=== PATIENT | female | born 1940 | race Caucasian/White ===

== ENCOUNTER 2019-03-10 05:40 | Day surgery (SDC) | payer MEDICARE ==
[2019-03-06 14:21] LABS: BASOPHILS # (AUTO) 0.1 X10'3 (0-0.2); BASOPHILS % (AUTO) 0.7 % (0-1); EOSINOPHILS # (AUTO) 0.4 X10'3 (0-0.9); EOSINOPHILS % (AUTO) 5.1 % (0-6); LYMPHOCYTES # (AUTO) 2.1 X10'3 (1.1-4.8); LYMPHOCYTES % (AUTO) 26.3 % (21-51); MEAN CORPUSCULAR HEMOGLOBIN 30.6 PG (27.0-31.0); MEAN CORPUSCULAR HGB CONC 33.7 g/dL (33.0-36.5); MONOCYTES # (AUTO) 0.4 X10'3 (0-0.9); MONOCYTES % (AUTO) 5.2 % (2-12); NEUTROPHILS % (AUTO) 62.7 % (42-75); PRE OP HEMOGLOBIN 11.8 g/dL (12.0-16.0); PRE OP PLATELET COUNT 230 X10'3 (140-440); RED BLOOD COUNT 3.85 X10'6 (4.20-5.60); RED CELL DISTRIBUTION WIDTH 13.6 % (11.5-14.5)
[2019-03-06 14:48] LABS: ALBUMIN 3.4 G/DL (3.4-5.0); ALBUMIN/GLOBULIN RATIO 0.9 (1.1-1.5); ALKALINE PHOSPHATASE 112 IU/L (46-116); BLOOD UREA NITROGEN 40 MG/DL (7-18); BUN/CREATININE RATIO 19.3 (6.6-38.0); CALCIUM 9.6 MG/DL (8.5-10.1); CHLORIDE 106 MMOL/L (99-107); CREATININE 2.07 MG/DL (0.40-0.90); PRE OP ALT 18 U/L (30-65); PRE OP ANION GAP 11 (8-16); PRE OP AST 13 U/L (10-37); PRE OP BILIRUB, TOTAL 0.5 MG/DL (0.0-1.0); PRE OP GLUCOSE 97 MG/DL (70-104); PRE OP POTASSIUM 4.3 MMOL/L (3.4-5.1); PRE OP SODIUM 142 MMOL/L (135-145); TOTAL CARBON DIOXIDE 25.3 MMOL/L (24-32); TOTAL PROTEIN 7.2 G/DL (6.4-8.2); eGFR 23 ML/MIN
[~2019-03-10] VITALS: Ht 160 cm; Wt 98.1 kg
[~2019-03-10 05:40] MED LIST: ALD25T PO; ALPR-304 PO; CARV-50 PO; CITA20TA28 PO; DOCUMENT DATE & TIME OF BETA-BLOCKER PO ONE; FURO-150 PO; GABA-338 PO; HYDR-3964 PO; NAPR-56 PO; OMEP-50 PO; cefazolin/dext.iso 2gm/50ml 50 ML IV ONE; famotidine 20mg tablet PO ONE; ringers solution, lacted 1,000 ML IV SCH
[2019-03-10] MEDS ORDERED: BUPIVAcaine/PF 2.5mg/ml (0.25%) 10ml vial ONE (06:33)
[2019-03-10] MEDS ORDERED: LIDOcaine 0.5% (5mg/ml) 50ml vial ONE (07:17)
[2019-03-10] MEDS ORDERED: ringers solution, lacted 1,000 ML IV SCH (07:44)
[2019-03-10] MEDS ORDERED: proCHLORperazine 10 MG/2 ml inj IV PRN (07:45)
[2019-03-10] MEDS ORDERED: morphine 4 MG/ML inj SYRINge IV PRN ×2 (07:45)
[2019-03-10] MEDS ORDERED: meperidine/PF 25mg/ml syringe IV PRN ×3 (07:45)
[2019-03-10] MEDS ORDERED: ondansetron/PF 4mg/2ml inj IV PRN (07:45)
[2019-03-10 07:50] VITALS: BP 134/66
--- NOTE | 2019-03-10 07:52 | NUR ---
RASH BOTH ANTECUBITALS FROM HIBICLENS SHOWER. PT DIDN'T TAKE 2ND SHOWER, DR GO AWARE Addendum: 03/10/19 at 0800 by Susi Wilburn RN Amended: Links added.
[2019-03-10 07:57] VITALS: BP 134/66
[2019-03-10] MEDS ORDERED: fentaNYL/PF 50MCG/1 ML 2ML syringe ONE (08:01)
[2019-03-10] MEDS ORDERED: midazolam 2 mg/2 ml injection ONE (08:01)
[2019-03-10 08:31] VITALS: BP 157/73
--- NOTE | 2019-03-10 08:31 | NUR ---
Received from OR via , accompanied by Anesthesiologist DR PACKER and report given by Anesthesiolgist. AWAKENS TO VOICE, VITALS STABLE. DRESSING DI. RODRIGO PAIN. FINGERS COOL AND PINK.
[2019-03-10 08:41] VITALS: BP 141/60
[2019-03-10 08:51] VITALS: BP 143/62
[2019-03-10 09:01] VITALS: BP 133/70
--- NOTE | 2019-03-10 09:11 | NUR ---
AWAKE AND ORIENTED. VITALS STABLE. DRESSING DI. RODRIGO PAIN. HOME WITH FAMILY AT THIS TIME.
== END 2019-03-10 09:11 | disposition home or self-care (01) ==
LOC: PAS 05:40
PROVIDERS: ATTEND Orthopaedic Surgery Hand Surgery
DX: G56.02 Carpal tunnel syndrome, left upper limb (principal); M65.342 Trigger finger, left ring finger; F41.9 Anxiety disorder, unspecified; I10 Essential (primary) hypertension; F32.9 Major depressive disorder, single episode, unspecified; K21.9 Gastro-esophageal reflux disease without esophagitis; E66.01 Morbid (severe) obesity due to excess calories; Z68.37 Body mass index [BMI] 37.0-37.9, adult; Z79.899 Other long term (current) drug therapy; Z88.0 Allergy status to penicillin; Z88.1 Allergy status to other antibiotic agents; Z88.8 Allergy status to other drugs, medicaments and biological substances; Z88.2 Allergy status to sulfonamides; M47.897 Other spondylosis, lumbosacral region; Z96.651 Presence of right artificial knee joint
CPT/HCPCS: 26055; 36415; 64721; 80053; 82948; 85025; J2001; J2250; J3010; J3490; A4215; J7120

== ENCOUNTER 2019-04-07 07:05 | Day surgery (SDC) | payer MEDICARE ==
[~2019-04-07] VITALS: Ht 160 cm; Wt 98.0 kg
[~2019-04-07 07:05] MED LIST changes: -NAPR-56 PO; -cefazolin/dext.iso 2gm/50ml 50 ML IV ONE; +levoFLOXACIN-Levaquin 500mg/D5 100 ML IV ONE
[2019-04-07] MEDS ORDERED: LIDOcaine 0.5% (5mg/ml) 50ml vial ONE (07:06)
[2019-04-07 07:15] VITALS: BP 169/67
[2019-04-07 08:20] LABS: ISTAT CREATININE 1.5 mg/dL (0.6-1.1); ISTAT HGB 10.5 g/dl (12.0-16.0); ISTAT IONIZED CALCIUM 1.19 mmol/L (1.03-1.32); ISTAT K 4.8 mmol/L (3.5-5.1); POC BUN/CREATININE RATIO 14.7 (6.6-38.0)
[2019-04-07] MEDS ORDERED: BUPIVAcaine/PF 2.5mg/ml (0.25%) 10ml vial ONE (08:48)
[2019-04-07] MEDS ORDERED: midazolam 2 mg/2 ml injection ONE (09:20)
[2019-04-07] MEDS ORDERED: fentaNYL/PF 50MCG/1 ML 2ML syringe ONE (09:20)
[2019-04-07 09:45] VITALS: BP 171/74
--- NOTE | 2019-04-07 09:45 | NUR ---
ADMITTED TO PACU FROM OR ACCOMPANIED BY ANESTHESIA. INTIAL PHYSICAL ASSESSMENT DONE AND RECORDED. REPORT RECEIVED FROM ANESTHESIA.
[2019-04-07 09:55] VITALS: BP 157/77
[2019-04-07 10:05] VITALS: BP 156/78
[2019-04-07 10:15] VITALS: BP 154/80
[2019-04-07 10:25] VITALS: BP 160/80
--- NOTE | 2019-04-07 10:25 | NUR ---
DISCHARGE CRITERIA MET, DISCHARGE INSTRUCTIONS GIVEN, DEMONSTRATES VERBAL UNDERSTANDING. DISCHARGED HOME IN GOOD CONDITION.
== END 2019-04-07 10:25 | disposition home or self-care (01) ==
LOC: PAS 07:05
PROVIDERS: ATTEND Orthopaedic Surgery Hand Surgery
DX: G56.01 Carpal tunnel syndrome, right upper limb (principal); I10 Essential (primary) hypertension; F41.9 Anxiety disorder, unspecified; F32.89 Other specified depressive episodes; K21.9 Gastro-esophageal reflux disease without esophagitis; E66.9 Obesity, unspecified; Z68.38 Body mass index [BMI] 38.0-38.9, adult; Z96.612 Presence of left artificial shoulder joint; Z96.651 Presence of right artificial knee joint; Z90.710 Acquired absence of both cervix and uterus; Z98.890 Other specified postprocedural states; Z88.8 Allergy status to other drugs, medicaments and biological substances; Z88.5 Allergy status to narcotic agent; Z88.1 Allergy status to other antibiotic agents; Z79.899 Other long term (current) drug therapy
CPT/HCPCS: 64721; 80047; A6222; J1956; J2001; J2250; J3010; J3490; A4215; A6449; J7120

== ENCOUNTER 2021-04-04 06:15 | Day surgery (SDC) | payer MEDICARE ==
[2021-03-28 12:53] LABS: ALBUMIN 3.4 G/DL (3.4-5.0); ALBUMIN/GLOBULIN RATIO 0.9 (1.1-1.5); ALKALINE PHOSPHATASE 95 IU/L (46-116); BLOOD UREA NITROGEN 17 MG/DL (7-18); BUN/CREATININE RATIO 11.6 (6.6-38.0); CALCIUM 9.2 MG/DL (8.5-10.1); CHLORIDE 97 MMOL/L (99-107); CREATININE 1.46 MG/DL (0.40-0.90); PRE OP ALT 12 U/L (30-65); PRE OP ANION GAP 11 (8-16); PRE OP AST 17 U/L (10-37); PRE OP BILIRUB, TOTAL 0.4 MG/DL (0.0-1.0); PRE OP GLUCOSE 98 MG/DL (70-104); PRE OP POTASSIUM 4.6 MMOL/L (3.4-5.1); PRE OP SODIUM 134 MMOL/L (135-145); TOTAL CARBON DIOXIDE 26.4 MMOL/L (24-32); TOTAL PROTEIN 7.1 G/DL (6.4-8.2); eGFR 34 ML/MIN
[2021-03-28 13:04] LABS: EOSINOPHILS # (AUTO) 0.2 X10'3 (0-0.9); MEAN PLATELET VOLUME 7.3 FL (7.4-10.4); MONOCYTES # (AUTO) 0.4 X10'3 (0-0.9); NEUTROPHILS # (AUTO) 2.7 X10'3 (1.8-7.7)
[2021-03-28 13:07] LABS: BASOPHILS % (AUTO) 0.6 % (0-1); EOSINOPHILS % (AUTO) 3.9 % (0-6); LYMPHOCYTES % (AUTO) 37.4 % (21-51); MEAN CORPUSCULAR HEMOGLOBIN 31.7 PG (27.0-31.0); MEAN CORPUSCULAR HGB CONC 34.4 g/dL (33.0-36.5); MEAN CORPUSCULAR VOLUME 92.1 FL (78-98); MONOCYTES % (AUTO) 7.4 % (2-12); NEUTROPHILS % (AUTO) 50.7 % (42-75); PRE OP HEMATOCRIT 29.8 % (35.0-45.0); PRE OP PLATELET COUNT 242 X10'3 (140-440); RED BLOOD COUNT 3.23 X10'6 (4.20-5.60); RED CELL DISTRIBUTION WIDTH 12.8 % (11.5-14.5)
[2021-03-28 13:10] LABS: PRE OP HEMOGLOBIN 10.2 g/dL (12.0-16.0)
[2021-04-04] VITALS (9 sets, daily range): BP systolic 129–183; BP diastolic 52–84
[~2021-04-04] VITALS: Ht 158.8 cm; Wt 83.0 kg
[~2021-04-04 06:15] MED LIST changes: +ACET-1059 PO; -ALD25T PO; -CARV-50 PO; -DOCUMENT DATE & TIME OF BETA-BLOCKER PO ONE; -HYDR-3964 PO; +OLME40TA13 PO; +THEA200C; +ceFAZolin 2gm in dextrose, iso 50 ML IV ONE; -levoFLOXACIN-Levaquin 500mg/D5 100 ML IV ONE
[2021-04-04] MEDS ORDERED: BUPIVAcaine/PF 2.5 mg/ml (0.25%) 30ml vial ONE (06:50)
[2021-04-04] MEDS ORDERED: morphine 2 MG/ML inj. syringe IV PRN (07:15)
[2021-04-04] MEDS ORDERED: morphine 4 MG/ML inj SYRINge IV PRN (07:15)
[2021-04-04] MEDS ORDERED: hydrALAZINE 20mg/ml inj. IV PRN (07:15)
[2021-04-04] MEDS ORDERED: fentaNYL/PF 50MCG/1 ML 2ML syringe IV PRN ×2 (07:15)
[2021-04-04] MEDS ORDERED: ringers solution, lacted 1,000 ML IV SCH (07:15)
[2021-04-04] MEDS ORDERED: labetalol 20mg/4ml (5mg/ml) syringe IV PRN (07:15)
[2021-04-04] MEDS ORDERED: ondansetron/PF 4mg/2ml inj IV PRN (07:15)
[2021-04-04] MEDS ORDERED: LIDOcaine 0.5% (5mg/ml) 50ml vial ONE (07:18)
[2021-04-04] MEDS ORDERED: fentaNYL/PF 50MCG/1 ML 2ML syringe ONE (08:50)
[2021-04-04] MEDS ORDERED: midazolam 1 mg/ML 2ml injection ONE (08:50)
[2021-04-04] MEDS ORDERED: hydrALAZINE 20mg/ml inj. IV ONE (09:07)
--- NOTE | 2021-04-04 09:25 | NUR ---
Received from OR via [facility] IN STABLE CONDITION , accompanied by Anesthesiologist and SPECIAL TAX AUDITOR report given by SPECIAL TAX AUDITOR AND Anesthesiolgist. Addendum: 04/04/21 at 1002 by Lela Lazcano RN Amended: Links added.
--- NOTE | 2021-04-04 10:55 | NUR ---
PATIENT DISCHARGED FROM PACU IN STABLE CONDITION AFTER WRITTEN AND VERBAL DISCHARGE INSTRUCTIONS GIVEN. PATIENT GAVE VERBAL UNDERSTANDING OF INSTRUCTIONS GIVEN. PATIENT LEFT FACILITY VIA WHEELCHAIR WITH RN. Addendum: 04/04/21 at 1128 by Lela Lazcano RN Amended: Links added.
== END 2021-04-04 10:55 | disposition home or self-care (01) ==
LOC: PAS 06:15
PROVIDERS: ATTEND Orthopaedic Surgery Hand Surgery
DX: M65.332 Trigger finger, left middle finger (principal); M65.4 Radial styloid tenosynovitis [de Quervain]; F41.9 Anxiety disorder, unspecified; I10 Essential (primary) hypertension; K21.9 Gastro-esophageal reflux disease without esophagitis; F32.9 Major depressive disorder, single episode, unspecified; E66.01 Morbid (severe) obesity due to excess calories; Z68.33 Body mass index [BMI] 33.0-33.9, adult; M19.011 Primary osteoarthritis, right shoulder; M54.30 Sciatica, unspecified side; M18.12 Unilateral primary osteoarthritis of first carpometacarpal joint, left hand; M17.12 Unilateral primary osteoarthritis, left knee; G47.30 Sleep apnea, unspecified; D64.9 Anemia, unspecified; Z96.612 Presence of left artificial shoulder joint; Z96.611 Presence of right artificial shoulder joint; Z96.651 Presence of right artificial knee joint; Z98.890 Other specified postprocedural states; Z90.710 Acquired absence of both cervix and uterus; Z20.822 Contact with and (suspected) exposure to COVID-19; Z79.899 Other long term (current) drug therapy; Z88.1 Allergy status to other antibiotic agents; Z88.0 Allergy status to penicillin; Z88.2 Allergy status to sulfonamides; Z88.8 Allergy status to other drugs, medicaments and biological substances; Z88.5 Allergy status to narcotic agent
CPT/HCPCS: 25000; 26055; 36415; 80053; 82948; 85025; 93005; J0360; J2001; J2250; J3010; J3490; U0003; U0005; Z7506; A4215; J7120

== ENCOUNTER 2021-05-15 03:52 | Emergency (ER) | payer MEDICARE ==
[~2021-05-15] VITALS: Ht 160 cm; Wt 85.0 kg
[~2021-05-15 03:52] MED LIST changes: -ceFAZolin 2gm in dextrose, iso 50 ML IV ONE; -famotidine 20mg tablet PO ONE; -ringers solution, lacted 1,000 ML IV SCH
[2021-05-15] MEDS ORDERED: metoclopramide 5 mg/ml inj IV ONE (04:05)
[2021-05-15 04:25] LABS: BASOPHILS % (AUTO) 0.8 % (0-1); EOSINOPHILS # (AUTO) 0.2 X10'3 (0-0.9); EOSINOPHILS % (AUTO) 3.5 % (0-6); HEMATOCRIT 31.6 % (35.0-45.0); HEMOGLOBIN 10.8 g/dl (12.0-16.0); LYMPHOCYTES # (AUTO) 0.7 X10'3 (1.1-4.8); LYMPHOCYTES % (AUTO) 16.2 % (21-51); MEAN CORPUSCULAR HEMOGLOBIN 31.5 PG (27.0-31.0); MEAN CORPUSCULAR HGB CONC 34.3 g/dL (33.0-36.5); MEAN CORPUSCULAR VOLUME 91.9 FL (78-98); MEAN PLATELET VOLUME 6.6 FL (7.4-10.4); MONOCYTES # (AUTO) 0.5 X10'3 (0-0.9); MONOCYTES % (AUTO) 10.4 % (2-12); NEUTROPHILS # (AUTO) 3.2 X10'3 (1.8-7.7); NEUTROPHILS % (AUTO) 69.1 % (42-75); PLATELET COUNT 178 X10'3 (140-440); RED BLOOD COUNT 3.44 X10'6 (4.20-5.60); RED CELL DISTRIBUTION WIDTH 12.7 % (11.5-14.5); WHITE BLOOD COUNT 4.6 X10'3 (4.5-11.0)
[2021-05-15 04:31] LABS: ALANINE AMINOTRANSFERASE 19 U/L (12-78); ALBUMIN 3.5 G/DL (3.4-5.0); ALBUMIN/GLOBULIN RATIO 1.1 (1.1-1.5); ALKALINE PHOSPHATASE 79 IU/L (46-116); ANION GAP 10 (8-16); ASPARTATE AMINO TRANSFERASE 24 U/L (10-37); BILIRUBIN,DIRECT 0.2 MG/DL (0-0.3); BILIRUBIN,TOTAL 0.6 MG/DL (0.1-1.0); BLOOD UREA NITROGEN 17 MG/DL (7-18); BUN/CREATININE RATIO 13.3 (6.6-38.0); CALCIUM 8.9 MG/DL (8.5-10.1); CHLORIDE 94 MMOL/L (99-107); CREATININE 1.28 MG/DL (0.40-0.90); GLUCOSE 92 MG/DL (70-104); LIPASE 57 U/L (73-393); POTASSIUM 3.6 MMOL/L (3.5-5.1); SODIUM 129 MMOL/L (135-145); TOTAL CARBON DIOXIDE 25.2 MMOL/L (24-32); TOTAL PROTEIN 6.8 G/DL (6.4-8.2); eGFR 40 ML/MIN
[2021-05-15 04:52] LABS: CLARITY,URINE CLEAR (Clear); COLOR,URINE YELLOW (Yellow); GLUCOSE, URINE NEGATIVE (Neg); KETONES,URINE NEGATIVE (Neg); LEUKOCYTE ESTERASE ,URINE NEGATIVE (Neg); NITRITES, URINE NEGATIVE (Neg); OCCULT BLOOD,URINE SMALL (Neg); PROTEIN,URINE 100 mg/dl (Neg); UROBILINOGEN,URINE 0.2 E.U/dL (0.2-1.0)
[2021-05-15 05:03] LABS: UA COLLECTION TYPE NON-SPECIFIED
[2021-05-15 05:04] LABS: BACTERIA,URINE NONE SEEN /HPF (Neg); WBC,URINE 0-4 /HPF (0-4)
[2021-05-15 05:05] LABS: SQUAMOUS EPITHELIAL CELL,UR FEW /LPF (FEW)
[2021-05-15] MEDS ORDERED: morphine 4 MG/ML inj SYRINge IV ONE (05:25)
[2021-05-15] MEDS ORDERED: labetalol 20mg/4ml (5mg/ml) syringe IV ONE (05:35)
--- NOTE | 2021-05-15 06:48 | NUR ---
PT STATES, " THAT LAST DOSE OF MORPHINE MADE ME NAUSEA" INFORMED DR. PAREDES. NEW ORDER ZOFRAN 4MG IV.
[2021-05-15] MEDS ORDERED: ondansetron/PF 4mg/2ml inj IV ONE ×2 (06:50→07:00)
[2021-05-15] MEDS ORDERED: normal saline 1000ml 1,000 ML IV ONE (06:55)
[2021-05-15] MEDS ORDERED: ketorolac tromethamine 15mg/ml inj. IV ONE (06:55)
[2021-05-15] MEDS ORDERED: normal saline 1000ML IV soln IVB ONE (06:55)
[2021-05-15] MEDS ORDERED: acetaminophen 325mg tablet PO ONE (06:55)
--- NOTE | 2021-05-15 08:55 | NUR ---
tele neuro completed.
--- NOTE | 2021-05-15 10:58 | NUR ---
pt states, "my medrano is feeling a little better, but i still have it".
[2021-05-15] MEDS ORDERED: LORazepam 2 mg/ml vial IV ONE (11:00)
--- NOTE | 2021-05-15 11:02 | NUR ---
pt claustrophobic, ativan ordered per dr. oliva for mri.
--- NOTE | 2021-05-15 11:44 | NUR ---
PT TO MRI
[2021-05-15 12:27] VITALS: BP 190/60
--- NOTE | 2021-05-15 12:28 | NUR ---
PT BACK TO ROOM FROM MRI, TOLERATED WELL
== END 2021-05-15 14:24 | disposition home or self-care (01) ==
LOC: ER 03:52
DX: G44.309 Post-traumatic headache, unspecified, not intractable (principal); Z20.822 Contact with and (suspected) exposure to COVID-19; I16.0 Hypertensive urgency; E87.1 Hypo-osmolality and hyponatremia; I10 Essential (primary) hypertension; G89.29 Other chronic pain; Z90.710 Acquired absence of both cervix and uterus; Z98.890 Other specified postprocedural states; Z90.89 Acquired absence of other organs; Z88.1 Allergy status to other antibiotic agents; Z88.2 Allergy status to sulfonamides; Z88.0 Allergy status to penicillin; Z88.8 Allergy status to other drugs, medicaments and biological substances; Z79.899 Other long term (current) drug therapy
CPT/HCPCS: 36415; 70450; 70551; 71045; 72125; 72141; 80048; 80076; 81001; 83690; 84484; 85025; 85651; 86140; 87635; 93005; 96361; 96374; 96375; 99285; C9803; J1885; J2060; J2270; J2405; J2765; J3490; J7030; 99284

== ENCOUNTER 2021-09-11 18:22 | Emergency (ER) | payer MEDICARE ==
[~2021-09-11] VITALS: Ht 157.5 cm; Wt 80.9 kg
[~2021-09-11 18:22] MED LIST changes: -OMEP-50 PO; +OMEP20CA16 PO
[2021-09-11 19:07] LABS: BASOPHILS % (AUTO) 0.8 % (0-1); EOSINOPHILS # (AUTO) 0.1 X10'3 (0-0.9); EOSINOPHILS % (AUTO) 3.2 % (0-6); HEMATOCRIT 31.3 % (35.0-45.0); HEMOGLOBIN 10.7 g/dl (12.0-16.0); LYMPHOCYTES # (AUTO) 1.4 X10'3 (1.1-4.8); LYMPHOCYTES % (AUTO) 30.7 % (21-51); MEAN CORPUSCULAR HEMOGLOBIN 31.9 PG (27.0-31.0); MEAN CORPUSCULAR HGB CONC 34.2 g/dL (33.0-36.5); MEAN CORPUSCULAR VOLUME 93.2 FL (78-98); MEAN PLATELET VOLUME 6.9 FL (7.4-10.4); MONOCYTES # (AUTO) 0.4 X10'3 (0-0.9); MONOCYTES % (AUTO) 8.1 % (2-12); NEUTROPHILS # (AUTO) 2.6 X10'3 (1.8-7.7); NEUTROPHILS % (AUTO) 57.2 % (42-75); PLATELET COUNT 243 X10'3 (140-440); RED BLOOD COUNT 3.35 X10'6 (4.20-5.60); RED CELL DISTRIBUTION WIDTH 12.3 % (11.5-14.5); WHITE BLOOD COUNT 4.5 X10'3 (4.5-11.0)
[2021-09-11 19:24] LABS: ALANINE AMINOTRANSFERASE 18 U/L (12-78); ALBUMIN 3.4 G/DL (3.4-5.0); ALBUMIN/GLOBULIN RATIO 1.1 (1.1-1.5); ALKALINE PHOSPHATASE 76 IU/L (46-116); ANION GAP 10 (8-16); ASPARTATE AMINO TRANSFERASE 20 U/L (10-37); BILIRUBIN,TOTAL 0.3 MG/DL (0.1-1.0); BLOOD UREA NITROGEN 22 MG/DL (7-18); BUN/CREATININE RATIO 14.4 (6.6-38.0); CALCIUM 8.6 MG/DL (8.5-10.1); CHLORIDE 102 MMOL/L (99-107); CREATININE 1.53 MG/DL (0.40-0.90); GLUCOSE 118 MG/DL (70-104); POTASSIUM 3.7 MMOL/L (3.5-5.1); SODIUM 139 MMOL/L (135-145); TOTAL CARBON DIOXIDE 26.7 MMOL/L (24-32); TOTAL PROTEIN 6.5 G/DL (6.4-8.2); eGFR 32 ML/MIN
[2021-09-11 21:25] VITALS: BP 167/67
== END 2021-09-11 21:29 | disposition home or self-care (01) ==
LOC: ER 18:23
DX: R55 Syncope and collapse (principal); R42 Dizziness and giddiness; I10 Essential (primary) hypertension; G89.29 Other chronic pain; F41.9 Anxiety disorder, unspecified; F32.A Depression, unspecified; Z90.710 Acquired absence of both cervix and uterus; Z90.89 Acquired absence of other organs; Z98.890 Other specified postprocedural states; Z88.1 Allergy status to other antibiotic agents; Z88.2 Allergy status to sulfonamides; Z88.8 Allergy status to other drugs, medicaments and biological substances; Z88.5 Allergy status to narcotic agent; Z79.899 Other long term (current) drug therapy
CPT/HCPCS: 36415; 71045; 80053; 83880; 84484; 85025; 93005; 99285

== ENCOUNTER 2022-02-09 11:27 | Emergency (ER) | payer MEDICARE ==
[~2022-02-09] VITALS: Ht 157.5 cm; Wt 78.2 kg
[~2022-02-09 11:27] MED LIST changes: -OLME40TA13 PO; +OLME40TA70 PO
[2022-02-09 12:54] LABS: BASOPHILS % (AUTO) 0.4 % (0-1); EOSINOPHILS # (AUTO) 0.2 X10'3 (0-0.9); EOSINOPHILS % (AUTO) 3.5 % (0-6); HEMATOCRIT 29.1 % (35.0-45.0); HEMOGLOBIN 9.8 g/dl (12.0-16.0); LYMPHOCYTES % (AUTO) 39.5 % (21-51); MEAN CORPUSCULAR HEMOGLOBIN 32.3 PG (27.0-31.0); MEAN CORPUSCULAR HGB CONC 33.6 g/dL (33.0-36.5); MEAN CORPUSCULAR VOLUME 96.1 FL (78-98); MEAN PLATELET VOLUME 7.3 FL (7.4-10.4); MONOCYTES # (AUTO) 0.3 X10'3 (0-0.9); MONOCYTES % (AUTO) 6.7 % (2-12); NEUTROPHILS # (AUTO) 2.5 X10'3 (1.8-7.7); NEUTROPHILS % (AUTO) 49.9 % (42-75); PLATELET COUNT 210 X10'3 (140-440); RED BLOOD COUNT 3.03 X10'6 (4.20-5.60); RED CELL DISTRIBUTION WIDTH 12.9 % (11.5-14.5); WHITE BLOOD COUNT 5.1 X10'3 (4.5-11.0)
[2022-02-09 13:06] LABS: ALANINE AMINOTRANSFERASE 15 U/L (12-78); ALBUMIN 3.7 G/DL (3.4-5.0); ALBUMIN/GLOBULIN RATIO 1.3 (1.1-1.5); ALKALINE PHOSPHATASE 72 IU/L (46-116); ANION GAP 7 (8-16); ASPARTATE AMINO TRANSFERASE 17 U/L (10-37); BILIRUBIN,TOTAL 0.2 MG/DL (0.1-1.0); BLOOD UREA NITROGEN 34 MG/DL (7-18); BUN/CREATININE RATIO 21.7 (6.6-38.0); CHLORIDE 102 MMOL/L (99-107); CREATININE 1.57 MG/DL (0.40-0.90); GLUCOSE 92 MG/DL (70-104); POTASSIUM 4.9 MMOL/L (3.5-5.1); SODIUM 135 MMOL/L (135-145); TOTAL CARBON DIOXIDE 26.2 MMOL/L (24-32); TOTAL PROTEIN 6.6 G/DL (6.4-8.2); eGFR 32 ML/MIN
[2022-02-09 18:43] LABS: CLARITY,URINE CLEAR (Clear); GLUCOSE, URINE NEGATIVE (Neg); KETONES,URINE NEGATIVE (Neg); LEUKOCYTE ESTERASE ,URINE NEGATIVE (Neg); NITRITES, URINE NEGATIVE (Neg); OCCULT BLOOD,URINE TRACE-INTACT (Neg); PH,URINE 6.5 (4.8-8.0); PROTEIN,URINE 30 mg/dl (Neg); UROBILINOGEN,URINE 0.2 E.U/dL (0.2-1.0)
[2022-02-09 18:58] LABS: COLOR,URINE STRAW (Yellow); UA COLLECTION TYPE CLN CATCH MIDSTREAM
[2022-02-09 19:09] LABS: SQUAMOUS EPITHELIAL CELL,UR FEW /LPF (FEW)
[2022-02-09 19:10] LABS: BACTERIA,URINE FEW /HPF (Neg); WBC,URINE 0-4 /HPF (0-4)
[2022-02-09 20:58] VITALS: BP 147/85
== END 2022-02-09 21:01 | disposition home or self-care (01) ==
LOC: ER 11:31
DX: I49.5 Sick sinus syndrome (principal); D64.9 Anemia, unspecified; F31.9 Bipolar disorder, unspecified; F20.9 Schizophrenia, unspecified; I10 Essential (primary) hypertension; Z88.1 Allergy status to other antibiotic agents; Z88.2 Allergy status to sulfonamides; Z88.8 Allergy status to other drugs, medicaments and biological substances; Z79.899 Other long term (current) drug therapy; S09.90XA Unspecified injury of head, initial encounter; R41.0 Disorientation, unspecified; R26.9 Unspecified abnormalities of gait and mobility
CPT/HCPCS: 36415; 70450; 71045; 80053; 81001; 83880; 84484; 85025; 93005; 99285